=== PATIENT | male | born 1960 | race Caucasian/White ===

== ENCOUNTER 2021-01-13 16:50 | Inpatient (IN) | payer OTHER ==
[2021-01-13 11:48] VITALS: BMI 26.2
[2021-01-13 14:03] LABS: HEMATOCRIT 46.2 % (35.4-49); HEMOGLOBIN 16.2 GM/dL (11.7-16.9); MCH 37.7 pg (25.7-33.7); MCHC 35.2 g/dl (32.0-35.9); MEAN PLT VOLUME 8.4 fl (7.5-11.1); PLATELET COUNT 138 10^3/uL (134-434); RBC 4.31 M/mm3 (4.00-5.60); RDW 14.1 % (11.9-15.9); WHITE BLOOD COUNT 5.6 K/mm3 (4.0-10.0)
[2021-01-13 14:05] LABS: BLOOD UREA NITROGEN 11.6 mg/dL (7-18)
[2021-01-13 14:08] LABS: CREATININE 0.9 mg/dL (0.55-1.3)
[2021-01-13 14:10] LABS: TOT PROT 6.2 g/dl (6.4-8.2)
[2021-01-13 14:30] LABS: SYPHILIS W/ RPR CONF NON-REACTIVE (NONREACTIVE)
[~2021-01-13 16:50] MED LIST: ACETAMINOPHEN 325 MG TABLET (FP) PO PRN; LOPERAMIDE HCL 2 MG CAPSULE PO PRN; MAG HYDROX/AL HYDROX/SIMETH 30 ML UNIT-DOSE CUP PO PRN; MAGNESIUM CITRATE 300 ML BOTTLE PO PRN; MAGNESIUM HYDROX 2400MG/30ML ORAL SUSPENSION 30 ML CUP PO PRN; P-EPHED 60MG/TRIPROLIDI 2.5MG TABLET PO PRN; guaiFENesin 200 MG/10 ML 10 ML UNIT-DOSE CUPS PO PRN
[2021-01-13] MEDS: hydrOXYzine PAMOATE 25 MG CAPSULE (FP) PO SCH ×3 (18:38→23:05)
[2021-01-13] MEDS: PRENATAL VITAMINS W/ FOLIC ACID TABLET (FP) PO SCH (18:38)
[2021-01-13] MEDS: NICOTINE 10 MG CARTRIDGE (INHALER) IH PRN (21:07)
[2021-01-13] MEDS: THIAMINE HCL 100 MG TABLET (FP) PO SCH (21:08)
[2021-01-13] MEDS: MELATONIN 5 MG TABLETS PO SCH (23:05)
[2021-01-14] MEDS: NICOTINE 10 MG CARTRIDGE (INHALER) IH PRN ×2 (06:40→14:49)
[2021-01-14] MEDS: hydrOXYzine PAMOATE 25 MG CAPSULE (FP) PO SCH ×5 (06:41→22:22)
[2021-01-14] MEDS: NICOTINE 14 MG/24 HOURS TOPICAL PATCH TD SCH (10:08)
[2021-01-14] MEDS: PRENATAL VITAMINS W/ FOLIC ACID TABLET (FP) PO SCH (10:08)
[2021-01-14] MEDS: MELATONIN 5 MG TABLETS PO SCH (22:22)
[2021-01-14] MEDS: THIAMINE HCL 100 MG TABLET (FP) PO SCH (22:22)
[2021-01-15] MEDS: hydrOXYzine PAMOATE 25 MG CAPSULE (FP) PO SCH ×5 (06:24→23:03)
[2021-01-15] MEDS: NICOTINE 10 MG CARTRIDGE (INHALER) IH PRN ×3 (06:25→18:09)
[2021-01-15] MEDS: NICOTINE 14 MG/24 HOURS TOPICAL PATCH TD SCH (10:17)
[2021-01-15] MEDS: PRENATAL VITAMINS W/ FOLIC ACID TABLET (FP) PO SCH (10:17)
[2021-01-15] MEDS: MELATONIN 5 MG TABLETS PO SCH (23:02)
[2021-01-15] MEDS: THIAMINE HCL 100 MG TABLET (FP) PO SCH (23:03)
[2021-01-16] MEDS: hydrOXYzine PAMOATE 25 MG CAPSULE (FP) PO SCH ×2 (07:22→09:43)
[2021-01-16] MEDS: PRENATAL VITAMINS W/ FOLIC ACID TABLET (FP) PO SCH (09:43)
[2021-01-16] MEDS: NICOTINE 14 MG/24 HOURS TOPICAL PATCH TD SCH (09:43)
[2021-01-16] MEDS: NICOTINE 10 MG CARTRIDGE (INHALER) IH PRN ×2 (09:44→17:44)
[2021-01-16] MEDS ORDERED: hydrOXYzine PAMOATE 25 MG CAPSULE (FP) PO PRN (10:22)
[2021-01-16] MEDS: THIAMINE HCL 100 MG TABLET (FP) PO SCH (23:04)
[2021-01-16] MEDS: MELATONIN 5 MG TABLETS PO SCH (23:04)
[2021-01-17] MEDS: PRENATAL VITAMINS W/ FOLIC ACID TABLET (FP) PO SCH (09:54)
[2021-01-17] MEDS: NICOTINE 14 MG/24 HOURS TOPICAL PATCH TD SCH (09:54)
[2021-01-17] MEDS: NICOTINE 10 MG CARTRIDGE (INHALER) IH PRN (09:55)
[2021-01-17] MEDS ORDERED: PT OWN MED DRAWER 7, Y5N ONE (16:10)
[2021-01-17] MEDS: MELATONIN 5 MG TABLETS PO SCH (22:24)
[2021-01-17] MEDS: THIAMINE HCL 100 MG TABLET (FP) PO SCH (22:24)
[2021-01-18] MEDS: PRENATAL VITAMINS W/ FOLIC ACID TABLET (FP) PO SCH (09:43)
[2021-01-18] MEDS: NICOTINE 14 MG/24 HOURS TOPICAL PATCH TD SCH (09:44)
[2021-01-18] MEDS: NICOTINE 10 MG CARTRIDGE (INHALER) IH PRN (15:12)
[2021-01-18 19:31] LABS: EPI CELLS 4 /uL (0-25.1); HYALINE CASTS 1 /uL (0-3.1); URINE APPEARANCE CLEAR; URINE BACTERIA 3 /uL (0-1359); URINE BILIRUBIN NEGATIVE (NEGATIVE); URINE COLOR DK YELLOW; URINE GLUCOSE (UA) NEGATIVE (NEGATIVE); URINE KETONE NEGATIVE (NEGATIVE); URINE LEUK ESTERASE TRACE (NEGATIVE); URINE NITRITE NEGATIVE (NEGATIVE); URINE PROTEIN NEGATIVE (NEGATIVE); URINE RBC 8 /uL (0-23.9); URINE WBC 12 /uL (0-25.8)
[2021-01-18] MEDS: THIAMINE HCL 100 MG TABLET (FP) PO SCH (21:46)
[2021-01-18] MEDS: MELATONIN 5 MG TABLETS PO SCH (21:46)
[2021-01-19] MEDS: PRENATAL VITAMINS W/ FOLIC ACID TABLET (FP) PO SCH (09:55)
[2021-01-19] MEDS: NICOTINE 14 MG/24 HOURS TOPICAL PATCH TD SCH (09:55)
[2021-01-19] MEDS: IBUPROFEN 400 MG TABLET (FP) PO PRN ×2 (09:57→21:11)
[2021-01-19] MEDS: NICOTINE 10 MG CARTRIDGE (INHALER) IH PRN ×2 (14:08→21:12)
[2021-01-19] MEDS: THIAMINE HCL 100 MG TABLET (FP) PO SCH (21:10)
[2021-01-19] MEDS: MELATONIN 5 MG TABLETS PO SCH (23:14)
[2021-01-20] MEDS: IBUPROFEN 400 MG TABLET (FP) PO PRN (06:16)
[2021-01-20] MEDS: PRENATAL VITAMINS W/ FOLIC ACID TABLET (FP) PO SCH (09:30)
[2021-01-20] MEDS: NICOTINE 14 MG/24 HOURS TOPICAL PATCH TD SCH (09:30)
[2021-01-20] MEDS: NICOTINE 10 MG CARTRIDGE (INHALER) IH PRN ×3 (09:31→21:12)
[2021-01-20] MEDS: THIAMINE HCL 100 MG TABLET (FP) PO SCH (21:12)
[2021-01-20] MEDS: MELATONIN 5 MG TABLETS PO SCH (21:12)
[2021-01-21] MEDS: PRENATAL VITAMINS W/ FOLIC ACID TABLET (FP) PO SCH (09:44)
[2021-01-21] MEDS: NICOTINE 14 MG/24 HOURS TOPICAL PATCH TD SCH (09:44)
[2021-01-21] MEDS: NICOTINE 10 MG CARTRIDGE (INHALER) IH PRN ×2 (09:45→22:12)
[2021-01-21] MEDS: MELATONIN 5 MG TABLETS PO SCH (22:12)
[2021-01-21] MEDS: THIAMINE HCL 100 MG TABLET (FP) PO SCH (22:12)
[2021-01-22] MEDS: IBUPROFEN 400 MG TABLET (FP) PO PRN (06:23)
[2021-01-22] MEDS: PRENATAL VITAMINS W/ FOLIC ACID TABLET (FP) PO SCH (09:46)
[2021-01-22] MEDS: NICOTINE 10 MG CARTRIDGE (INHALER) IH PRN ×3 (09:46→22:17)
[2021-01-22] MEDS: NICOTINE 14 MG/24 HOURS TOPICAL PATCH TD SCH (09:46)
[2021-01-22] MEDS: MELATONIN 5 MG TABLETS PO SCH (22:17)
[2021-01-22] MEDS: THIAMINE HCL 100 MG TABLET (FP) PO SCH (22:17)
[2021-01-23] MEDS: NICOTINE 14 MG/24 HOURS TOPICAL PATCH TD SCH (10:38)
[2021-01-23] MEDS: NICOTINE 10 MG CARTRIDGE (INHALER) IH PRN ×3 (10:38→22:01)
[2021-01-23] MEDS: PRENATAL VITAMINS W/ FOLIC ACID TABLET (FP) PO SCH (10:38)
[2021-01-23] MEDS: MELATONIN 5 MG TABLETS PO SCH (21:18)
[2021-01-23] MEDS: THIAMINE HCL 100 MG TABLET (FP) PO SCH (21:18)
[2021-01-24] MEDS: PRENATAL VITAMINS W/ FOLIC ACID TABLET (FP) PO SCH (09:51)
[2021-01-24] MEDS: NICOTINE 14 MG/24 HOURS TOPICAL PATCH TD SCH (09:52)
[2021-01-24] MEDS: NICOTINE 10 MG CARTRIDGE (INHALER) IH PRN ×2 (09:52→17:35)
[2021-01-24] MEDS: MELATONIN 5 MG TABLETS PO SCH (21:32)
[2021-01-24] MEDS: THIAMINE HCL 100 MG TABLET (FP) PO SCH (21:32)
[2021-01-25] MEDS: NICOTINE 14 MG/24 HOURS TOPICAL PATCH TD SCH (09:48)
[2021-01-25] MEDS: NICOTINE 10 MG CARTRIDGE (INHALER) IH PRN ×2 (09:48→21:12)
[2021-01-25] MEDS: PRENATAL VITAMINS W/ FOLIC ACID TABLET (FP) PO SCH (09:48)
[2021-01-25] MEDS: THIAMINE HCL 100 MG TABLET (FP) PO SCH (21:12)
[2021-01-25] MEDS: MELATONIN 5 MG TABLETS PO SCH (21:12)
[2021-01-26] MEDS: PRENATAL VITAMINS W/ FOLIC ACID TABLET (FP) PO SCH (10:19)
[2021-01-26] MEDS: NICOTINE 14 MG/24 HOURS TOPICAL PATCH TD SCH (10:20)
[2021-01-26] MEDS: NICOTINE 10 MG CARTRIDGE (INHALER) IH PRN ×2 (10:20→22:17)
[2021-01-26] MEDS: THIAMINE HCL 100 MG TABLET (FP) PO SCH (22:16)
[2021-01-26] MEDS: MELATONIN 5 MG TABLETS PO SCH (22:16)
[2021-01-27] MEDS: NICOTINE 14 MG/24 HOURS TOPICAL PATCH TD SCH (10:08)
[2021-01-27] MEDS: PRENATAL VITAMINS W/ FOLIC ACID TABLET (FP) PO SCH (10:08)
[2021-01-27] MEDS: NICOTINE 10 MG CARTRIDGE (INHALER) IH PRN ×3 (10:09→22:17)
[2021-01-27] MEDS: THIAMINE HCL 100 MG TABLET (FP) PO SCH (22:18)
[2021-01-27] MEDS: MELATONIN 5 MG TABLETS PO SCH (22:18)
[2021-01-28] MEDS: PRENATAL VITAMINS W/ FOLIC ACID TABLET (FP) PO SCH (09:52)
[2021-01-28] MEDS: NICOTINE 10 MG CARTRIDGE (INHALER) IH PRN ×3 (09:53→21:16)
[2021-01-28] MEDS: NICOTINE 14 MG/24 HOURS TOPICAL PATCH TD SCH (09:53)
[2021-01-28] MEDS: MELATONIN 5 MG TABLETS PO SCH (21:16)
[2021-01-28] MEDS: THIAMINE HCL 100 MG TABLET (FP) PO SCH (21:16)
[2021-01-29] MEDS: NICOTINE 14 MG/24 HOURS TOPICAL PATCH TD SCH (10:13)
[2021-01-29] MEDS: PRENATAL VITAMINS W/ FOLIC ACID TABLET (FP) PO SCH (10:13)
[2021-01-29] MEDS: NICOTINE 10 MG CARTRIDGE (INHALER) IH PRN ×2 (10:13→16:30)
[2021-01-29] MEDS: MELATONIN 5 MG TABLETS PO SCH (22:24)
[2021-01-29] MEDS: THIAMINE HCL 100 MG TABLET (FP) PO SCH (22:24)
[2021-01-30] MEDS: NICOTINE 10 MG CARTRIDGE (INHALER) IH PRN ×3 (09:51→21:18)
[2021-01-30] MEDS: NICOTINE 14 MG/24 HOURS TOPICAL PATCH TD SCH (09:51)
[2021-01-30] MEDS: PRENATAL VITAMINS W/ FOLIC ACID TABLET (FP) PO SCH (09:51)
[2021-01-30] MEDS: THIAMINE HCL 100 MG TABLET (FP) PO SCH (21:17)
[2021-01-30] MEDS: MELATONIN 5 MG TABLETS PO SCH (21:45)
[2021-01-31] MEDS: NICOTINE 10 MG CARTRIDGE (INHALER) IH PRN ×3 (09:59→21:59)
[2021-01-31] MEDS: NICOTINE 14 MG/24 HOURS TOPICAL PATCH TD SCH (09:59)
[2021-01-31] MEDS: PRENATAL VITAMINS W/ FOLIC ACID TABLET (FP) PO SCH (09:59)
[2021-01-31] MEDS: THIAMINE HCL 100 MG TABLET (FP) PO SCH (21:13)
[2021-01-31] MEDS: MELATONIN 5 MG TABLETS PO SCH (21:13)
[2021-02-01] MEDS: NICOTINE 14 MG/24 HOURS TOPICAL PATCH TD SCH (09:47)
[2021-02-01] MEDS: NICOTINE 10 MG CARTRIDGE (INHALER) IH PRN ×3 (09:47→21:17)
[2021-02-01] MEDS: PRENATAL VITAMINS W/ FOLIC ACID TABLET (FP) PO SCH (09:47)
[2021-02-01] MEDS: THIAMINE HCL 100 MG TABLET (FP) PO SCH (21:18)
[2021-02-01] MEDS: MELATONIN 5 MG TABLETS PO SCH (22:17)
[2021-02-02] MEDS: NICOTINE 14 MG/24 HOURS TOPICAL PATCH TD SCH (09:57)
[2021-02-02] MEDS: PRENATAL VITAMINS W/ FOLIC ACID TABLET (FP) PO SCH (09:57)
[2021-02-02] MEDS: NICOTINE 10 MG CARTRIDGE (INHALER) IH PRN ×2 (09:57→21:16)
[2021-02-02] MEDS: THIAMINE HCL 100 MG TABLET (FP) PO SCH (21:16)
[2021-02-02] MEDS: MELATONIN 5 MG TABLETS PO SCH (21:17)
[2021-02-03] MEDS: NICOTINE 14 MG/24 HOURS TOPICAL PATCH TD SCH (09:38)
[2021-02-03] MEDS: NICOTINE 10 MG CARTRIDGE (INHALER) IH PRN ×3 (09:39→21:21)
[2021-02-03] MEDS: PRENATAL VITAMINS W/ FOLIC ACID TABLET (FP) PO SCH (09:40)
[2021-02-03] MEDS: THIAMINE HCL 100 MG TABLET (FP) PO SCH (21:20)
[2021-02-03] MEDS: MELATONIN 5 MG TABLETS PO SCH (21:21)
[2021-02-04] MEDS: NICOTINE 10 MG CARTRIDGE (INHALER) IH PRN ×3 (09:52→21:19)
[2021-02-04] MEDS: PRENATAL VITAMINS W/ FOLIC ACID TABLET (FP) PO SCH (09:52)
[2021-02-04] MEDS: NICOTINE 14 MG/24 HOURS TOPICAL PATCH TD SCH (09:53)
[2021-02-04] MEDS: THIAMINE HCL 100 MG TABLET (FP) PO SCH (21:19)
[2021-02-04] MEDS: MELATONIN 5 MG TABLETS PO SCH (21:19)
[2021-02-05] MEDS: NICOTINE 14 MG/24 HOURS TOPICAL PATCH TD SCH (09:47)
[2021-02-05] MEDS: PRENATAL VITAMINS W/ FOLIC ACID TABLET (FP) PO SCH (09:47)
[2021-02-05] MEDS: NICOTINE 10 MG CARTRIDGE (INHALER) IH PRN ×3 (09:47→21:11)
[2021-02-05] MEDS: THIAMINE HCL 100 MG TABLET (FP) PO SCH (21:11)
[2021-02-05] MEDS: MELATONIN 5 MG TABLETS PO SCH (21:11)
[2021-02-06] MEDS: PRENATAL VITAMINS W/ FOLIC ACID TABLET (FP) PO SCH (09:32)
[2021-02-06] MEDS: NICOTINE 10 MG CARTRIDGE (INHALER) IH PRN ×2 (09:33→22:08)
[2021-02-06] MEDS: NICOTINE 14 MG/24 HOURS TOPICAL PATCH TD SCH (09:33)
[2021-02-06] MEDS: THIAMINE HCL 100 MG TABLET (FP) PO SCH (22:07)
[2021-02-06] MEDS: MELATONIN 5 MG TABLETS PO SCH (22:07)
[2021-02-07] MEDS: NICOTINE 14 MG/24 HOURS TOPICAL PATCH TD SCH (09:42)
[2021-02-07] MEDS: PRENATAL VITAMINS W/ FOLIC ACID TABLET (FP) PO SCH (09:42)
[2021-02-07] MEDS: NICOTINE 10 MG CARTRIDGE (INHALER) IH PRN ×3 (09:43→21:41)
[2021-02-07] MEDS: THIAMINE HCL 100 MG TABLET (FP) PO SCH (21:39)
[2021-02-07] MEDS: MELATONIN 5 MG TABLETS PO SCH (21:41)
[2021-02-08] MEDS: PRENATAL VITAMINS W/ FOLIC ACID TABLET (FP) PO SCH (09:52)
[2021-02-08] MEDS: NICOTINE 14 MG/24 HOURS TOPICAL PATCH TD SCH (09:53)
[2021-02-08] MEDS: NICOTINE 10 MG CARTRIDGE (INHALER) IH PRN ×3 (09:53→22:11)
[2021-02-08] MEDS: THIAMINE HCL 100 MG TABLET (FP) PO SCH (21:17)
[2021-02-08] MEDS: MELATONIN 5 MG TABLETS PO SCH (21:17)
[2021-02-09] MEDS: PRENATAL VITAMINS W/ FOLIC ACID TABLET (FP) PO SCH (09:45)
[2021-02-09] MEDS: NICOTINE 14 MG/24 HOURS TOPICAL PATCH TD SCH (09:45)
[2021-02-09] MEDS: NICOTINE 10 MG CARTRIDGE (INHALER) IH PRN ×2 (09:45→14:12)
[2021-02-09] MEDS: THIAMINE HCL 100 MG TABLET (FP) PO SCH (21:59)
[2021-02-09] MEDS: MELATONIN 5 MG TABLETS PO SCH (21:59)
[2021-02-10] MEDS: NICOTINE 10 MG CARTRIDGE (INHALER) IH PRN (06:49)
[2021-02-10 07:03] VITALS: BP 121/74; PULSE 74; TEMP 96.9
[2021-02-10] MEDS: PRENATAL VITAMINS W/ FOLIC ACID TABLET (FP) PO SCH (09:14)
[2021-02-10] MEDS: NICOTINE 14 MG/24 HOURS TOPICAL PATCH TD SCH (09:14)
== END 2021-02-10 09:40 | disposition home or self-care (01) | DRG 772 ==
LOC: YASAS 16:50 → Y5N 16:52
PROVIDERS: ADMIT Allergy & Immunology; ATTEND Allergy & Immunology
PROC: HZ42ZZZ Group Counseling for Substance Abuse Treatment, Cognitive-Behavioral (ICD-10-PCS; principal; 2021-01-13)
DX: F10.20 Alcohol dependence, uncomplicated (principal); F17.210 Nicotine dependence, cigarettes, uncomplicated; F19.24 Other psychoactive substance dependence with psychoactive substance-induced mood disorder; F41.9 Anxiety disorder, unspecified
CPT/HCPCS: 36415; 80053; 81003; 85027; 86780; 86803; C9803; U0003; U0005